=== PATIENT | female | born 1995 ===

== ENCOUNTER 2017-01-17 11:04 | Emergency (ER) | payer OTHER ==
[~2017-01-17] VITALS: Ht 175.3 cm; Wt 75.0 kg
[2017-01-17 11:08] VITALS: BP 118/71; PULSE 75; RESP 18; TEMP 98.5; O2SAT 100
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
[2017-01-17] MEDS ORDERED: SODIUM CHLOR 0.9% 1000 ML INJ 1,000 ML IV SCH (11:22)
[2017-01-17] MEDS ORDERED: TETANUS/DIPHTHERIA TOXOID ADULT 0.5 ML VIAL IM ONE (11:30)
[2017-01-17] MEDS ORDERED: SODIUM CHLORIDE 0.9% FLUSH 10 ML FLUSH IV FLUSH PRN (11:30)
[2017-01-17] MEDS ORDERED: ONDANSETRON HCL 4 MG/2 ML VIAL IVP ONE (11:30)
[2017-01-17] MEDS ORDERED: KETOROLAC TROMETHAMINE 30 MG/ML (IVP) VIAL IVP ONE (11:30)
[2017-01-17 11:47] VITALS: RESP 18; O2SAT 98
[2017-01-17] MEDS ORDERED: CYCLOBENZAPRINE HCL 10 MG TAB PO ONE (12:00)
[2017-01-17 12:06] LABS: AUTOMATED NEUTROPHIL # 7.3 TH/MM3 (1.8-7.7); BASOPHIL % 0.5 % (0.0-2.0); EOSINOPHIL # 0.1 TH/MM3 (0-0.4); EOSINOPHIL % 0.7 % (0.0-4.0); HEMATOCRIT 41.4 % (35.0-46.0); HEMO FLAGS DIFF FINAL; LYMPH % 12.6 % (9.0-44.0); LYMPHOCYTE # 1.1 TH/MM3 (1.0-4.8); MEAN CELL VOLUME 87.1 FL (80.0-100.0); MEAN CORPUSCULAR HEMOGLOBIN 29.9 PG (27.0-34.0); MEAN CORPUSCULAR HGB CONC 34.3 % (32.0-36.0); MONO % 6.2 % (0.0-8.0); PLATELET COUNT 163 TH/MM3 (150-450); RED BLOOD COUNT 4.75 MIL/MM3 (4.00-5.30); RED CELL DISTRIBUTION WIDTH 12.8 % (11.6-17.2); WHITE BLOOD COUNT 9.1 TH/MM3 (4.0-11.0)
[2017-01-17 12:17] LABS: BACTERIA, URINE RARE /hpf; BLOOD, URINE NEG (NEG); COMMENT (UR) CULT NOT INDICATED; CULTURE IF INDICATED CULT NOT INDICATED; GLUCOSE,URINE NEG (NEG); KETONE, URINE NEG (NEG); MUCUS URINE FEW /lpf (OCC); NITRITE,URINE NEG (NEG); SQUAMOUS EPITHELIAL CELL URINE 21 /hpf (0-5); URINE COLOR YELLOW (YELLW/STRAW)
[2017-01-17 12:18] LABS: POTASSIUM 3.7 MEQ/L (3.5-5.1)
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
[2017-01-17] MEDS ORDERED: IBUP800T23 PO (13:24)
[2017-01-17] MEDS ORDERED: CYCL1TAB29 PO (13:24)
[2017-01-17 13:39] VITALS: BP 114/73; PULSE 70; RESP 18; O2SAT 100
== END 2017-01-17 14:37 | disposition home or self-care (01) ==
LOC: NEPD 11:04
DX: S06.2X0A Diffuse traumatic brain injury without loss of consciousness, initial encounter (principal); S80.812A Abrasion, left lower leg, initial encounter; S80.811A Abrasion, right lower leg, initial encounter; S40.812A Abrasion of left upper arm, initial encounter; S40.811A Abrasion of right upper arm, initial encounter; M54.9 Dorsalgia, unspecified; V23.4XXA Motorcycle driver injured in collision with car, pick-up truck or van in traffic accident, initial encounter; Y93.89 Activity, other specified; Y92.481 Parking lot as the place of occurrence of the external cause; Y99.9 Unspecified external cause status; Z23 Encounter for immunization
CPT/HCPCS: 70450; 80048; 81001; 84703; 85025; 90471; 90714; 96361; 96374; 96375; 99285; J1885; J2405; J7030